=== PATIENT | male | born 1955 | race African-American/Black ===

== ENCOUNTER 2020-11-07 09:32 | Outpatient (CLI) | payer OTHER ==
[2020-11-07 21:21] LABS: SARS-CoV-2 PCR by NAA Not Detected (NotDetected)
== END 2020-11-07 09:33 | disposition home or self-care (01) ==
LOC: CSHLAB 09:32
PROVIDERS: ATTEND Internal Medicine Gastroenterology
DX: Z20.822 Contact with and (suspected) exposure to COVID-19 (principal); Z12.11 Encounter for screening for malignant neoplasm of colon
CPT/HCPCS: 87635; U0003; U0005

== ENCOUNTER 2020-11-12 08:20 | Day surgery (SDC) | payer OTHER ==
[2020-11-08 13:45] VITALS: BMI 23.5
[2020-11-12] MEDS ORDERED: Lidocaine 1% MPF 2 ML VIAL ONE (10:15)
== END 2020-11-12 12:41 | disposition home or self-care (01) ==
LOC: CSHSDC 08:20
PROVIDERS: ATTEND Internal Medicine Gastroenterology
DX: Z12.11 Encounter for screening for malignant neoplasm of colon (principal); K57.30 Diverticulosis of large intestine without perforation or abscess without bleeding; K64.9 Unspecified hemorrhoids; Z79.82 Long term (current) use of aspirin; Z79.02 Long term (current) use of antithrombotics/antiplatelets; D12.5 Benign neoplasm of sigmoid colon
CPT/HCPCS: 88305